=== PATIENT | male | born 1950 | race Caucasian/White ===

== ENCOUNTER → 2016-02-13 | Outpatient (CLI) | payer MEDICARE ==
[2016-02-13 10:40] LABS: BASOPHILS % (AUTO) 0 % (0-10); EOSINOPHILS # (AUTO) 0.2 10^3/uL (0.0-0.3); EOSINOPHILS % (AUTO) 1 % (0-10); LYMPHOCYTES % (AUTO) 16 % (12-44); MEAN CORPUSCULAR HEMOGLOBIN 26 PG (25-34); MEAN CORPUSCULAR HGB CONC 32 G/DL (32-36); MEAN CORPUSCULAR VOLUME 82 FL (80-99); MEAN PLATELET VOLUME 10.2 FL (7.4-10.4); MONOCYTES # (AUTO) 0.9 X 10^3 (0.0-1.0); MONOCYTES % (AUTO) 7 % (0-12); NEUTROPHILS # (AUTO) 9.4 X 10^3 (1.8-7.8); NEUTROPHILS % (AUTO) 75 % (42-75); PLATELET COUNT 313 10^3/uL (130-400); RED BLOOD COUNT 4.31 10^6/uL (4.35-5.85); WHITE BLOOD COUNT 12.5 10^3/uL (4.3-11.0)
[2016-02-13 11:00] LABS: ALANINE AMINOTRANSFERASE 20 U/L (0-55); ALBUMIN 3.5 G/DL (3.2-4.5); ANION GAP 9 MMOL/L (5-14); ASPARTATE AMINO TRANSFERASE 16 U/L (5-34); BILIRUBIN,TOTAL 0.3 MG/DL (0.1-1.0); BLOOD UREA NITROGEN 19 MG/DL (7-18); BUN/CREATININE RATIO 22; CALCIUM 9.4 MG/DL (8.5-10.1); CARBON DIOXIDE 25 MMOL/L (21-32); CHLORIDE 108 MMOL/L (98-107); CHOLESTEROL 99 MG/DL (< 200); CREATININE SERUM 0.86 MG/DL (0.60-1.30); DIRECT LDL 50 MG/DL (1-129); GFR ESTIMATED > 60; GLUCOSE 137 MG/DL (70-105); SODIUM 142 MMOL/L (135-145); TOTAL PROTEIN 6.6 G/DL (6.4-8.2); TRIGLYCERIDES 62 MG/DL (<150); VLDL CHOLESTEROL 12 MG/DL (5-40)
[2016-02-13 11:20] LABS: THYROID STIMULATING HORMONE 0.45 UIU/ML (0.35-4.94)
== END ==
LOC: HH 10:30
DX: M62.81 Muscle weakness (generalized) (principal); E11.9 Type 2 diabetes mellitus without complications; I10 Essential (primary) hypertension; Z79.4 Long term (current) use of insulin
CPT/HCPCS: 80053; 80061; 83036; 84443; 85025

== ENCOUNTER → 2016-02-14 | Outpatient (CLI) | payer MEDICARE ==
[2016-02-14 17:52] LABS: BILIRUBIN,URINE NEGATIVE (NEGATIVE); KETONES,URINE NEGATIVE (NEGATIVE); LEUKOCYTE ESTERASE ,URINE 2+ (NEGATIVE); NITRITE,URINE NEGATIVE (NEGATIVE); PH,URINE 6 (5-9); PROTEIN,URINE 1+ (NEGATIVE); UROBILINOGEN,URINE NORMAL (NORMAL)
== END ==
LOC: LABNPT 17:47
DX: N39.0 Urinary tract infection, site not specified (principal)
CPT/HCPCS: 81000; 87088; 87186

== ENCOUNTER → 2016-02-27 | Outpatient (CLI) | payer MEDICARE ==
[2016-02-27 16:27] LABS: BILIRUBIN,URINE NEGATIVE (NEGATIVE); KETONES,URINE NEGATIVE (NEGATIVE); LEUKOCYTE ESTERASE ,URINE 1+ (NEGATIVE); NITRITE,URINE NEGATIVE (NEGATIVE); PH,URINE 6 (5-9); PROTEIN,URINE 1+ (NEGATIVE); UROBILINOGEN,URINE NORMAL (NORMAL)
[2016-02-27 16:42] LABS: CALCIUM OXALATE CRYSTALS,UR FEW /LPF
== END ==
LOC: HH 16:20
DX: R82.99 Other abnormal findings in urine (principal)
CPT/HCPCS: 81000; 87077; 87088; 87186

== ENCOUNTER → 2016-03-13 | Outpatient (CLI) | payer MEDICARE ==
[2016-03-13 14:10] LABS: BILIRUBIN,URINE NEGATIVE (NEGATIVE); KETONES,URINE NEGATIVE (NEGATIVE); LEUKOCYTE ESTERASE ,URINE 2+ (NEGATIVE); NITRITE,URINE NEGATIVE (NEGATIVE); PH,URINE 6 (5-9); PROTEIN,URINE 1+ (NEGATIVE); UROBILINOGEN,URINE NORMAL (NORMAL)
[2016-03-13 14:24] LABS: CALCIUM OXALATE CRYSTALS,UR MODERATE /LPF; WBC,URINE 25-50 /HPF
== END ==
LOC: HH 12:30
DX: N39.0 Urinary tract infection, site not specified (principal)
CPT/HCPCS: 81000; 87088

== ENCOUNTER → 2016-05-04 | Outpatient (CLI) | payer MEDICARE, OTHER ==
--- NOTE | 2016-05-04 14:10 | Diagnostic Imaging Report ---
PROCEDURE: CT abdomen and pelvis without contrast. TECHNIQUE: Multiple contiguous axial images were obtained through the abdomen and pelvis without the use of intravenous contrast. INDICATION: UTIs for nine months. FINDINGS: The lung bases are clear. The liver appears normal. The gallbladder is absent. Bile ducts are not dilated. The pancreas is normal. The spleen is normal. The adrenal glands are normal. Kidneys show multiple calculi bilaterally with no evidence for renal obstruction. Largest calculus on the right in the mid calyx measures approximately 7 mm. Largest calculus on left in the pole calyx measuring 7 mm. There is a 2 cm cyst in the lateral aspect of the left kidney. Renal outlines are smooth. No perinephric fluid. The ureters are not dilated. The bladder appears normal. There are several calcifications in the pelvis consistent with phleboliths. The prostate is not enlarged. Stomach is filled with food and fluid. Small bowel is not distended. There is a moderate amount of stool throughout the colon to the rectum consistent with some degree of constipation. The appendix is visualized and normal. There is no evidence of diverticulitis. There is no intra-abdominal adenopathy. No evidence of aortic aneurysm with atherosclerotic disease of the aorta. IMPRESSION: 1. Bilateral nephrolithiasis without evidence of renal obstruction. 2. There is a 2 cm cyst in the left kidney. 3. Finding are consistent with moderate degree of constipation. There is diverticulosis without evidence of diverticulitis. Dictated by: Dictated on workstation # [id number]
== END ==
LOC: RAD 11:48
PROVIDERS: ATTEND Urology
DX: N39.0 Urinary tract infection, site not specified (principal); N20.0 Calculus of kidney; N28.1 Cyst of kidney, acquired
CPT/HCPCS: 74176

== ENCOUNTER 2016-06-01 14:39 | Outpatient (RCR) | payer MEDICARE, OTHER | END 2016-06-05 15:42 | disposition home or self-care (01) | PROVIDERS: ATTEND Nurse Practitioner Family | DX: R53.1 Weakness (principal); R20.0 Anesthesia of skin ==

== ENCOUNTER 2016-10-12 23:08 | Inpatient (IN) | payer MEDICARE, OTHER ==
[~2016-10-12] VITALS: Ht 154.9 cm; Wt 46.4 kg
[2016-10-12] MEDS ORDERED: GABA-488 PO (23:42)
[2016-10-12] MEDS ORDERED: METF500T4 PO (23:42)
[2016-10-12] MEDS ORDERED: SERT100T8 PO (23:42)
[2016-10-12] MEDS ORDERED: AMLO10TA2 PO (23:42)
[2016-10-12] MEDS ORDERED: GLIP5TAB13 PO (23:42)
[2016-10-12] MEDS ORDERED: FLUT1DIS26 (23:42)
[2016-10-12] MEDS ORDERED: BUPR100T7 PO (23:46)
[2016-10-12] MEDS ORDERED: ATOR20TA66 PO (23:46)
[2016-10-12] MEDS ORDERED: IPRA3AMP IH (23:46)
[2016-10-12] MEDS ORDERED: INSU100V16 SQ (23:46)
[2016-10-12] MEDS ORDERED: INSU100V6 SQ (23:46)
[2016-10-13] VITALS (7 sets, daily range): BP systolic 132–165; BP diastolic 79–92
[2016-10-13] MEDS ORDERED: NS IV 500 ML 500 ML IV ONE (00:10)
--- NOTE | 2016-10-13 00:10 | ED GI ---
General Chief Complaint: General Problems/Pain Stated Complaint: POSS PNEUMONIA,POSS UTI,DIABETES Nursing Triage Note: caregiver reports increased confusion since yesterday Sepsis Screen: No Definite Risk Source of Information: Patient, Caregiver (daughter in law) Exam Limitations: No Limitations History of Present Illness Time Seen By Provider: 00:08 Initial Comments Patient presents to ER by private conveyance with his [id number] who is the DPOA. He has a chief complaint of one to 2 days worsening nausea vomiting, confusion and weakness. He's had a productive cough for the past couple days. He was treated about 2-4 weeks ago with some antibiotics perhaps Keflex for a chronic UTI that he is seeing urology for. They were told that this UTI would probably never go away. He says he always has painful urination and never has gotten better. 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 He is having no chest pains or abdominal pains. He has no diarrhea or constipation but states that he is typically with loose stools. He has no acute rashes. Allergies and Home Medications Allergies Coded Allergies: erythromycin base (Verified Allergy, Unknown, 10/13/16) oxaprozin (Verified Allergy, Unknown, 10/13/16) Home Medications Amlodipine Besylate 10 Mg Tablet, 10 MG PO DAILY, (Reported) Atorvastatin Calcium 20 Mg Tablet, 20 MG PO, (Reported) Bupropion HCl 100 Mg Tablet.er, 100 MG PO, (Reported) Fluticasone/Salmeterol 1 Each Blst.w.dev, (Reported) Gabapentin 300 Mg Capsule, (Reported) Glipizide 5 Mg Tablet, (Reported) Insulin Aspart 100 Unit/1 Ml Susp, 1,000 UNIT SQ, (Reported) Insulin Glargine,Hum.rec.anlog 100 Unit/1 Ml Vial, 100 UNIT SQ, (Reported) Ipratropium/Albuterol Sulfate 3 Ml Ampul.neb, 3 ML IH Q4H PRN for SHORTNESS OF BREATH, (Reported) Metformin HCl 500 Mg Tablet, (Reported) Sertraline HCl 100 Mg Tablet, (Reported) Review of Systems Constitutional: No chills, No diaphoresis, No fever, malaise EENTM: No Blurred Vision, No Eye Pain Respiratory: Cough, Denies Shortness of Air Cardiovascular: Denies Chest Pain, Denies Lightheadedness Gastrointestinal: Denies Abdominal Pain, Denies Constipated, Denies Diarrhea, Nausea, Vomiting Genitourinary: Denies Burning, Denies Discharge Musculoskeletal: No back pain, No joint pain Skin: No pruritus, No rash Psychiatric/Neurological: Denies Headache, Denies Numbness, Denies Paresthesia Past Icevmjo-Ihlmlx-Xkqwqw Hx Patient Social History Alcohol Use: Denies Use Recreational Drug Use: No Smoking Status: Never a Smoker Recent Foreign Travel: No Contact w/Someone Who Travel: No Recent Infectious Disease Expo: No Surgeries History of Surgeries: Yes (brain tumor) Respiratory History of Respiratory Disorde: Yes Respiratory Disorders: COPD Cardiovascular History of Cardiac Disorders: Yes Cardiac Disorders: Hypertension Neurological History of Neurological Disord: Yes Neurological Disorders: Dementia Genitourinary History of Genitourinary Disor: No Gastrointestinal History of Gastrointestinal Di: No Musculoskeletal History of Musculoskeletal Dis: No Endocrine History of Endocrine Disorders: Yes Endocrine Disorders: Diabetes, Insulin dep HEENT History of HEENT Disorders: No Cancer History of Cancer: No Psychosocial History of Psychiatric Problem: Yes Behavioral Health Disorders: Depression Integumentary History of Skin or Integumenta: No Physical Exam Vital Signs VS - Last 72 Hours, by Label 10/12/16 23:39 Temp 98.5 Pulse 89 Resp 18 B/P (MAP) 178/94 Pulse Ox 95 Capillary Refill : Less Than 3 Seconds General Appearance: no apparent distress, thin HEENT: PERRL/EOMI, normal ENT inspection, pharynx normal Neck: non-tender, full range of motion, supple, normal inspection Respiratory: chest non-tender, lungs clear, normal breath sounds Cardiovascular: normal peripheral pulses, regular rate, rhythm, no edema Peripheral Pulses: 2+ Radial Pulses (R), 2+ Radial Pulses (L) Gastrointestinal: normal bowel sounds, non tender, soft Extremities: normal range of motion, non-tender, normal inspection, no pedal edema, normal capillary refill Back: normal inspection, no CVA tenderness, no vertebral tenderness Male: normal genitalia Neurologic/Psychiatric: no motor/sensory deficits, alert, normal mood/affect, oriented x 3 Skin: normal color, warm/dry Lymphatic: no adenopathy Focused Exam Evaluation Lactate Level Laboratory Tests 10/13/16 00:25: Lactic Acid Level 1.31 Lactic Acid Level Laboratory Tests Test 10/13/16 00:25 Lactic Acid Level 1.31 MMOL/L (0.50-2.00) Progress/Results/Core Measures Results/Orders Lab Results Laboratory Tests Test 10/13/16 00:25 10/13/16 00:55 Range/Units White Blood Count 12.4 H 4.3-11.0 10^3/uL Red Blood Count 4.21 L 4.35-5.85 10^6/uL Hemoglobin 12.9 L 13.3-17.7 G/DL Hematocrit 40 40-54 % Mean Corpuscular Volume 94 80-99 FL Mean Corpuscular Hemoglobin 31 25-34 PG Mean Corpuscular Hemoglobin Concent 33 32-36 G/DL Red Cell Distribution Width 13.2 10.0-14.5 % Platelet Count 194 130-400 10^3/uL Mean Platelet Volume 10.4 7.4-10.4 FL Neutrophils (%) (Auto) 78 H 42-75 % Lymphocytes (%) (Auto) 11 L 12-44 % Monocytes (%) (Auto) 9 0-12 % Eosinophils (%) (Auto) 1 0-10 % Basophils (%) (Auto) 0 0-10 % Neutrophils # (Auto) 9.7 H 1.8-7.8 X 10^3 Lymphocytes # (Auto) 1.4 1.0-4.0 X 10^3 Monocytes # (Auto) 1.1 H 0.0-1.0 X 10^3 Eosinophils # (Auto) 0.2 0.0-0.3 10^3/uL Basophils # (Auto) 0.0 0.0-0.1 10^3/uL Sodium Level 141 135-145 MMOL/L Potassium Level 4.0 3.6-5.0 MMOL/L Chloride Level 103 98-107 MMOL/L Carbon Dioxide Level 27 21-32 MMOL/L Anion Gap 11 5-14 MMOL/L Blood Urea Nitrogen 19 H 7-18 MG/DL Creatinine 0.84 0.60-1.30 MG/DL Estimat Glomerular Filtration Rate > 60 BUN/Creatinine Ratio 23 Glucose Level 147 H 70-105 MG/DL Lactic Acid Level 1.31 0.50-2.00 MMOL/L Calcium Level 9.6 8.5-10.1 MG/DL Magnesium Level 2.0 1.8-2.4 MG/DL Total Bilirubin 0.3 0.1-1.0 MG/DL Aspartate Amino Transf (AST/SGOT) 26 5-34 U/L Alanine Aminotransferase (ALT/SGPT) 38 0-55 U/L Alkaline Phosphatase 96 40-136 U/L Total Protein 6.3 L 6.4-8.2 GM/DL Albumin 3.9 3.2-4.5 GM/DL Urine Color YELLOW Urine Clarity VERY CLOUDY H Urine pH 5 5-9 Urine Specific [place] 1.020 1.016-1.022 Urine Protein 2+ H NEGATIVE Urine Glucose (UA) 2+ H NEGATIVE Urine Ketones NEGATIVE NEGATIVE Urine Nitrite NEGATIVE NEGATIVE Urine Bilirubin NEGATIVE NEGATIVE Urine Urobilinogen NORMAL NORMAL MG/DL Urine Leukocyte Esterase 3+ H NEGATIVE Urine RBC (Auto) 4+ H NEGATIVE Urine RBC 0-2 /HPF Urine WBC >100 H /HPF Urine Squamous Epithelial Cells NONE /HPF Urine Crystals PRESENT H /LPF Urine Calcium Oxalate Crystals RARE H /LPF Urine Bacteria MODERATE H /HPF Urine Casts NONE /LPF Urine Mucus NEGATIVE /LPF Urine Culture Indicated YES My Orders Orders - GAYE FERREIRA Cbc With Automated Diff (10/13/16 00:10) Comprehensive Metabolic Panel (10/13/16 00:10) Lactic Acid Analyzer (10/13/16 00:10) Magnesium (10/13/16 00:10) Ua Culture If Indicated (10/13/16 00:10) Chest 1 View, Ap/Pa Only (10/13/16 00:10) Saline Lock/Iv-Start (10/13/16 00:10) Ns Iv 500 Ml (Sodium Chloride 0.9%) (10/13/16 00:10) Urine Culture (10/13/16 00:55) Medications Given in ED Current Medications Medications Dose Ordered Sig/Shakira Route Start Time Stop Time Status Last Admin Dose Admin Sodium Chloride 500 ml @ 0 mls/hr Q0M ONCE IV 10/13/16 00:10 10/13/16 00:12 DC 10/13/16 00:38 0 MLS/HR Vital Signs/I&O Vital Sign - Last 12Hours 10/12/16 23:39 Temp 98.5 Pulse 89 Resp 18 B/P (MAP) 178/94 Pulse Ox 95 Blood Pressure Mean: 122 Progress Note : Time: 01:17 Progress Note Patient seems to be having some confusion possibly delirium secondary to infection, with nausea and vomiting. He has a known history of cystitis. Despite the possibility of having a colonized bladder he states he's having painful urination and new symptoms. We'll obtain blood and urine and a chest x- ray to go along with his loose productive cough which this provider has not heard tonight. Lungs were clear and chest x-ray was unremarkable so I'm leaning more towards urinary tract. Lactates normal so at least he is not getting septic. Diagnostic Imaging Diagonstic Imaging: Xray Plain Films/CT/US/NM/MRI: chest Comments No acute heart cardiopulmonary processes noted. No acute osseous or soft tissue abnormality is either. Reviewed: Reviewed by Me Departure Communication (Admissions) Time/Spoke to Admitting Phy: 01:43 Communication Discussed the case with Dr. Potter as well as choice of antibiotics and plan for admission and possible need for some placement afterwards. Impression Impression: Primary Impression: Urinary tract infection Qualified Codes: N30.01 - Acute cystitis with hematuria Additional Impression: Delirium Disposition: ADMITTED INPATIENT Condition: Stable Admissions Decision to Admit Reason: Admit from ER (General) Decision to Admit/Date: Oct 13, 2016 Time/Decision to Admit Time: 01:48 Departure-Patient Inst. Referrals: NO,LOCAL PHYSICIAN (PCP/Family) Primary Care Physician GAYE FERREIRA Oct 13, 2016 00:10
[2016-10-13 00:39] LABS: BASOPHILS % (AUTO) 0 % (0-10); EOSINOPHILS # (AUTO) 0.2 10^3/uL (0.0-0.3); EOSINOPHILS % (AUTO) 1 % (0-10); LYMPHOCYTES # (AUTO) 1.4 X 10^3 (1.0-4.0); LYMPHOCYTES % (AUTO) 11 % (12-44); MEAN CORPUSCULAR HEMOGLOBIN 31 PG (25-34); MEAN CORPUSCULAR HGB CONC 33 G/DL (32-36); MEAN CORPUSCULAR VOLUME 94 FL (80-99); MEAN PLATELET VOLUME 10.4 FL (7.4-10.4); MONOCYTES # (AUTO) 1.1 X 10^3 (0.0-1.0); MONOCYTES % (AUTO) 9 % (0-12); NEUTROPHILS # (AUTO) 9.7 X 10^3 (1.8-7.8); NEUTROPHILS % (AUTO) 78 % (42-75); PLATELET COUNT 194 10^3/uL (130-400); RED BLOOD COUNT 4.21 10^6/uL (4.35-5.85); RED CELL DISTRIBUTION WIDTH 13.2 % (10.0-14.5); WHITE BLOOD COUNT 12.4 10^3/uL (4.3-11.0)
[2016-10-13 00:59] LABS: ALANINE AMINOTRANSFERASE 38 U/L (0-55); ALBUMIN 3.9 GM/DL (3.2-4.5); ANION GAP 11 MMOL/L (5-14); ASPARTATE AMINO TRANSFERASE 26 U/L (5-34); BILIRUBIN,TOTAL 0.3 MG/DL (0.1-1.0); BLOOD UREA NITROGEN 19 MG/DL (7-18); BUN/CREATININE RATIO 23; CALCIUM 9.6 MG/DL (8.5-10.1); CARBON DIOXIDE 27 MMOL/L (21-32); CHLORIDE 103 MMOL/L (98-107); CREATININE SERUM 0.84 MG/DL (0.60-1.30); GFR ESTIMATED > 60; GLUCOSE 147 MG/DL (70-105); SODIUM 141 MMOL/L (135-145); TOTAL PROTEIN 6.3 GM/DL (6.4-8.2)
[2016-10-13 01:05] LABS: BILIRUBIN,URINE NEGATIVE (NEGATIVE); KETONES,URINE NEGATIVE (NEGATIVE); LEUKOCYTE ESTERASE ,URINE 3+ (NEGATIVE); NITRITE,URINE NEGATIVE (NEGATIVE); PH,URINE 5 (5-9); PROTEIN,URINE 2+ (NEGATIVE); UROBILINOGEN,URINE NORMAL (NORMAL)
[2016-10-13 01:15] LABS: CALCIUM OXALATE CRYSTALS,UR RARE /LPF; WBC,URINE >100 /HPF
[2016-10-13] MEDS ORDERED: NS IV 1000 ML 1,000 ML ONE (02:36)
[2016-10-13] MEDS ORDERED: HALOPERIDOL 5 MG/ML (HALDOL) AMP IM PRN (03:15)
[2016-10-13] MEDS ORDERED: ACETAMINOPHEN 500 MG TAB (TYLENOL) PO PRN (03:15)
[2016-10-13] MEDS ORDERED: IBUPROFEN 800 MG (MOTRIN) TAB PO PRN (03:15)
[2016-10-13] MEDS ORDERED: fentaNYL INJECTION 100 MCG/2 ML AMP IV PRN (03:15)
[2016-10-13] MEDS ORDERED: ONDANSETRON 4 MG/2 ML (SDV) Z0FRAN IV PRN (03:15)
[2016-10-13] MEDS: NS IV 1000 ML 1,000 ML IV SCH ×3 (04:07→17:01)
[2016-10-13] MEDS: inSUlin ASPART (NovoLOG) 1 UNIT/0.01 ML (CHARGE PER UNIT) SC SCH ×4 (06:25→21:10)
--- NOTE | 2016-10-13 07:12 | Diagnostic Imaging Report ---
Clinical indication: Patient with complaints of increased confusion. Exam: Portable chest x-ray upright view. Comparisons: None. Findings: Lungs/pleura: Lungs are clear. There is no pneumothorax. There is no pleural effusion. Mediastinum: Unremarkable. Pulmonary vasculature: Unremarkable. Heart: Unremarkable. Bones/extrathoracic soft tissue: Unremarkable. Impression: There is no radiographic evidence of acute cardiopulmonary process. Dictated by: Dictated on workstation # [id number]
[2016-10-13] MEDS ORDERED: AMLO10TA2 PO (11:36)
[2016-10-13] MEDS ORDERED: CHOL200059 PO (11:45)
--- NOTE | 2016-10-13 12:23 | Physical Therapy Evaluation ---
PT Evaluation-General Medical Diagnosis Admission Date Oct 13, 2016 at 01:45 Medical Diagnosis: ABD pain Onset Date: Oct 12, 2016 Therapy Diagnosis Therapy Diagnosis: weakness Height/Weight Height (Feet): 5 Height (Inches): 1.00 Weight (Pounds): 102 Weight (Ounces): 4.2 Precautions Precautions/Isolations: Fall Prevention, Standard Precautions Weight Bear Status Weight Bearing Restriction: Weight Bearing/Tolerated Referral Physician: Tariq Reason for Referral: Evaluation/Treatment Social History Home: Single Level Current Living Status: Other Family Prior/[facility] FIM Prior Level of Function Functional [place] Measure 0=Not Assessed/NA 4=Minimal Assistance 1=Total Assistance 5=Supervision or Setup 2=Maximal Assistance 6=Modified [place] 3=Moderate Assistance 7=Complete [place] Bed Mobility: 5 Transfers (B,C,W/C) (FIM): 5 Gait: 5 Locomotion: 5 PT Evaluation-Current Subjective States that he fell while transferring at home last night. States that his family brought him to the ED last night after the fall. Pain Numeric Pain Scale: 0-No Pain Objective Patient Orientation: Person, Place Attachments: IV ROM/Strength ROM Upper Extremities WFL ROM Lower Extremities WFL Strenght Lower Extremities 4/5 Integumentary/Posture Bowel Incontinence: Yes Bladder Incontinence: Yes Posture kyphotic Transfers Functional [place] Measure 0=Not Assessed/NA 4=Minimal Assistance 1=Total Assistance 5=Supervision or Setup 2=Maximal Assistance 6=Modified [place] 3=Moderate Assistance 7=Complete [place] Transfers (B, C, W/C) (FIM): 3 Scootin Rollin Supine to/from Sit: 4 Sit to/from Stand: 3 Gait Mode of Locomotion: Walk Anticipated Mode of Locomotion: Walk Gait (FIM): 1 Distance (FIM): 1=up to 49 ft Distance: 2' Gait Level of Assist: 3 Gait Persons Needed: 1 Gait Assistive Device: FWW Balance Sitting Static: Fair Sitting Dynamic: Fair Standing Static: Poor Standing Dynamic: Poor Assessment/Needs The patient has decreased functional mobility secondary to decreased functional strength and decreased functional activity tolerance. Rehab Potential: Fair PT Short Term Goals Short Term Goals Time Frame: Oct 20, 2016 Transfers (B,C,W/C) (FIM): 5 Gait (FIM): 1 Distance (FIM): 1=up to 49 ft Gait Distance Comment: 20' Gait Level of Assist: 5 Gait Assistive Device: FWW PT Half-Way Goals [employer] Supervisor Goals PT Half-Way Goals Time Frame: Oct 27, 2016 Transfers (B,C,W/C) (FIM): 5 Gait (FIM): 5 Gait distance (FIM): 3=150 ft Distance: 150' Gait Level of Assist: 5 Gait Assistive Device: FWW PT Plan Problem List Problem List: Activity Tolerance, Functional Strength, Safety, Balance, Gait, Transfer, Bed Mobility Treatment/Plan Treatment Plan: Continue Plan of Care Treatment Plan: Bed Mobility, Education, Functional Activity Jesus, Functional Strength, Gait, Therapeutic Exercise, Transfers Treatment Duration: Oct 27, 2016 Frequency: Daily Estimated Hrs Per Day: .25 hour per day Patient and/or Family Agrees t: Yes Time/GCodes Time In: 1200 Time Out: 1220 Total Billed Treatment Time: 20 Total Billed Treatment 1, EV CORNELIO Scott G Codes Necessary: PONCHO Conley PT Oct 13, 2016 12:23
--- NOTE | 2016-10-13 13:35 | Occupational Therapy Eval ---
OT Evaluation-General/PLF Medical Diagnosis Admission Date Oct 13, 2016 at 01:45 Medical Diagnosis: UTI, delerium Onset Date: Oct 12, 2016 Therapy Diagnosis Therapy Diagnosis: decr self care, weakness Height/Weight Height (Feet): 5 Height (Inches): 1.00 Weight (Pounds): 102 Weight (Ounces): 4.2 Precautions Precautions/Isolations: Fall Prevention, Standard Precautions Weight Bear Status Weight Bearing Restriction: Weight Bearing/Tolerated Referral Physician: Tariq Referral Reason: Evaluation/Treatment Medical History Pertinent Medical History: COPD, DM, Dementia, HTN Additional Medical History Depression. Brain tumor removed 2 years ago, with inability to walk Current History Admitted through ED when family unable to transfer him. Reviewed History: Yes Social History Home: Single Level Current Living Status: Other Family ADL-Prior Level of Function ADL PLOF Comments Pt was poor historian and difficulty to get clear picture of his prior functional status. He said that he was able to dress in bed by himself. He was incontinent of bowel and bladder and didn't transfer to toilet at all but he was able to transfer from bed to w/c with someone standing by. He said he does not bathe and hasn't had a bathe since July but that his caregiver had talked to him and he was going to start doing sponge baths. He indicated that he has a paid caregiver (Li, his stepdaughter?) "as much as I need her". OT Current Status Subjective Pt seen in room, up in recliner, agreeable to OT. No pain mentioned. Appearance Pleasant, cooperative Mental Status/Objective Patient Orientation: Person () Attachments: IV Current Upper Extremity ROM Grossly WFL bilat Upper Extremity Strength Grossly 4/5 bilat ADL-Treatment ADL-Current Pt refused to brush his teeth. Said he has been feeding himself OK but not transferring to toilet or using urinal (incontinent bowel and bladder). Functional [place] Measure 0=Not Assessed/NA 4=Minimal Assistance 1=Total Assistance 5=Supervision or Setup 2=Maximal Assistance 6=Modified [place] 3=Moderate Assistance 7=Complete IndependenceIRFPAI Quality Coding Scale 6 Independent with activity with or without an assistive device 5 Patient requires set up or clean up by helper. Patient completes activity by themselves 4 Supervision or touching assist (CGA). [place] provide cues , steadying assist 3 The helper provides less than half the effort to complete the activity 2 The helper provides more than half the effort to complete the activity 1 Dependent. The helper does all the effort to complete an activity 7 Patient refused to complete or attempt activity 9 The patient did not perform the activity before the current illness or injury 88 Not attempted due to Medical conditions or safety concerns Education OT Patient Education: Purpose of tx/functional activities, Rehab process Teaching Recipient: Patient Teaching Methods: Discussion Response to Teaching: Verbalize Understanding OT Short Term Goals Short Term Goals Transfers (B,C,W/C) (FIM): 5 OT Fruit [employer] Worker Goals Group Home Goals Time Frame: Oct 19, 2016 Eating (FIM): 6 Grooming(FIM): 5 Upper Body Dressing(FIM): 5 Lower Body Dressing(FIM): 5 Pt will maximize independence in basic ADLs and strengthen arms to assist with transfers and ADLs. Additional Goals: 2-Verbalize Understanding, 3-ImproveStrength/Jesus 1=Demonstrate adherence to instructed precautions during ADL tasks. 2=Patient will verbalize/demonstrate understanding of assistive devices/ modifications for ADL. 3=Patient will improve strength/tolerance for activity to enable patient to perform ADL's. OT Education/Plan Problem List/Assessment Assessment: Decreased UE Strength, Dependent Transfers, Impaired Self-Care Skills Pt may benefit from skilled Ot to increase his independence in basic self care to allow him to safely return home to live with caregiver assistance. Discharge Recommendations Plan/Recommendations: Continue POC Therapy D/C Recommendations: Home w/ Family Support Treatment Plan/Plan of Care Treatment,Training & Education: Yes Patient would benefit from OT for education, treatment and training to promote independence in ADL's, mobility, safety and/or upper extremity function for ADL' s. Plan of Care: ADL Retraining, UE Funct Exercise/Act Treatment Duration: Oct 19, 2016 Frequency: 5 times per week Estimated Hrs Per Day: .5 hour per day Agreement: Yes Rehab Potential: Fair Time/GCodes Start Time: 12:53 Stop Time: 13:07 Total Time Billed (hr/min): 14 Billed Treatment Time visit, 14 minutes evaluation low intensity LORENZO RICCI OT Oct 13, 2016 13:35
[2016-10-13] MEDS: buPROPion SR 150 MG (WELLBUTRIN SR) TAB PO SCH (13:57)
[2016-10-13] MEDS: SERTRALINE 100 MG (ZOLOFT) TAB PO SCH (13:58)
[2016-10-13] MEDS: ATORVASTATIN 20 MG (LIPITOR) TABLET PO SCH (13:58)
[2016-10-13] MEDS: amLODIPine 5 MG (NORVASC) TAB PO SCH (13:58)
[2016-10-13] MEDS: inSUlin DETERMIR 1 UNIT/0.01 ML (LEVEMIR) CHARGE PER UNIT SQ SCH (21:18)
[2016-10-14 00:26] VITALS: BP 158/86
[2016-10-14 04:40] VITALS: BP 167/89
[2016-10-14 05:31] LABS: BASOPHILS % (AUTO) 0 % (0-10); EOSINOPHILS # (AUTO) 0.1 10^3/uL (0.0-0.3); EOSINOPHILS % (AUTO) 1 % (0-10); LYMPHOCYTES # (AUTO) 1.6 X 10^3 (1.0-4.0); LYMPHOCYTES % (AUTO) 18 % (12-44); MEAN CORPUSCULAR HEMOGLOBIN 30 PG (25-34); MEAN CORPUSCULAR HGB CONC 33 G/DL (32-36); MEAN CORPUSCULAR VOLUME 93 FL (80-99); MEAN PLATELET VOLUME 10.4 FL (7.4-10.4); MONOCYTES # (AUTO) 0.8 X 10^3 (0.0-1.0); MONOCYTES % (AUTO) 9 % (0-12); NEUTROPHILS # (AUTO) 6.4 X 10^3 (1.8-7.8); NEUTROPHILS % (AUTO) 72 % (42-75); PLATELET COUNT 195 10^3/uL (130-400); RED BLOOD COUNT 4.21 10^6/uL (4.35-5.85); RED CELL DISTRIBUTION WIDTH 13.3 % (10.0-14.5); WHITE BLOOD COUNT 8.8 10^3/uL (4.3-11.0)
[2016-10-14 05:52] LABS: ANION GAP 12 MMOL/L (5-14); BLOOD UREA NITROGEN 14 MG/DL (7-18); BUN/CREATININE RATIO 18; CALCIUM 9.8 MG/DL (8.5-10.1); CARBON DIOXIDE 22 MMOL/L (21-32); CHLORIDE 108 MMOL/L (98-107); CREATININE SERUM 0.79 MG/DL (0.60-1.30); GFR ESTIMATED > 60; GLUCOSE 176 MG/DL (70-105); POTASSIUM 3.5 MMOL/L (3.6-5.0); SODIUM 142 MMOL/L (135-145)
[2016-10-14] MEDS: inSUlin ASPART (NovoLOG) 1 UNIT/0.01 ML (CHARGE PER UNIT) SC SCH ×4 (06:25→21:06)
[2016-10-14 08:29] VITALS: BP 186/97
[2016-10-14] MEDS: buPROPion SR 150 MG (WELLBUTRIN SR) TAB PO SCH (08:57)
[2016-10-14] MEDS: ATORVASTATIN 20 MG (LIPITOR) TABLET PO SCH (08:58)
[2016-10-14] MEDS: amLODIPine 5 MG (NORVASC) TAB PO SCH (08:58)
[2016-10-14] MEDS: SERTRALINE 100 MG (ZOLOFT) TAB PO SCH (08:58)
[2016-10-14] MEDS ORDERED: buPROPion SR 150 MG (WELLBUTRIN SR) TAB PO SCH (09:00)
[2016-10-14] MEDS ORDERED: SERTRALINE 100 MG (ZOLOFT) TAB PO SCH (09:00)
[2016-10-14] MEDS ORDERED: ATORVASTATIN 20 MG (LIPITOR) TABLET PO SCH (09:00)
[2016-10-14] MEDS ORDERED: amLODIPine 5 MG (NORVASC) TAB PO SCH (09:00)
[2016-10-14] MEDS ORDERED: KCL 20 MEQ TAB (K-DUR) PO NR (11:30)
--- NOTE | 2016-10-14 12:00 | History & Physical-Hospitalist ---
HPI History of Present Illness: HPI/Chief Complaint CC: UTI with weakness HPI: This patient was seen yesterday on 10/13/16 and inadvertently missed the history and physical dictation. Patient presented to the emergency room with fever and weakness and has a history of chronic UTI. Patient was found to have abnormal UA so is placed on Rocephin empirically and due to the fact that he was almost immobile he was admitted to fourth floor for IV fluid IV antibiotics and further evaluation. His pbbetqjd-kb-wdn is a pikq-xz-xhxz mother who takes care of him since brain surgery and after moving him out of a retirement in [place] and has actually done pretty well at home. He has a wheelchair and walker and all supportive devices that he needs at home and he will be returning home at discharge. Patient takes insulin and otherwise does well and sees the [facility] Lencho Gross and has no local private practice physician. Today I saw the patient and see lactobacillus on urine culture I did confer with urology and we will await for sensitivities to return on the urine culture before discontinue the Rocephin antibiotics but lactobacillus is usually in female vaginal area so unsure of why that is in his urine culture. Nebulizer treatments are now ordered and home medication are all given without difficulty and his plan is to return home on Saturday with [id number]. He declines any retirement placement or home health. Source: patient Exam Limitations: no limitations Date Seen 10/14/16 Time Seen by Provider: 11:00 Attending Physician Nikki Potter DO PCP No,Local Physician Referring Physician Date of Admission Oct 13, 2016 at 01:45 Home Medications & Allergies Home Medications Reviewed patient Home Medication Reconciliation Form Allergies Allergies Coded Allergies erythromycin base (Verified Allergy, Unknown, 10/13/16) oxaprozin (Verified Allergy, Unknown, 10/13/16) Past Amclsln-Exfymp-Kzabre Hx Patient Social History Marrital Status: single Employed/Student: retired ([employer] 21 years) Alcohol Use: Denies Use Recreational Drug Use: No Smoking Status: Never a Smoker Physical Abuse Screen: No Sexual Abuse: No Recent Foreign Travel: No Contact w/other who traveled: No Recent Infectious Disease Expo: No Seasonal Allergies Seasonal Allergies: No Surgeries Yes (brain tumor) Respiratory Yes COPD Cardiovascular Yes Hypertension Neurological Yes Dementia Genitourinary Yes Kidney Stones, UTI-Chronic Gastrointestinal Yes Chronic Constipation Musculoskeletal Yes Arthritis Endocrine History of Endocrine Disorders: Yes Endocrine Disorders: Diabetes, Insulin dep Are Your Blood Sugars Over 250: No HEENT History of HEENT Disorders: No Cancer No Psychosocial History of Psychiatric Problem: Yes Behavioral Health Disorders: Depression Integumentary History of Skin or Integumenta: No Blood Transfusions History of Blood Disorders: No Family Medical History Family Hx: Patient reports no known family medical history. Review of Systems Constitutional: see HPI, weakness EENTM: no symptoms reported Respiratory: no symptoms reported Cardiovascular: no symptoms reported Gastrointestinal: no symptoms reported Genitourinary: decreased output, frequency Musculoskeletal: no symptoms reported Skin: no symptoms reported Psychiatric/Neurological: No Symptoms Reported All Other Systems Reviewed Negative Unless Noted: Yes Physical Exam Physical Exam Vital Signs Vital Sign - Last 12Hours 10/12/16 10/13/16 10/13/16 23:39 02:30 12:00 Temp 98.5 Pulse 89 Resp 18 B/P (MAP) 178/94 Pulse Ox 95 O2 Delivery Room Air O2 Flow Rate 2.00 Capillary Refill : Less Than 3 Seconds General Appearance: No Apparent Distress, WD/WN, Chronically ill, Cachetic Eyes: Bilateral Eye Normal Inspection, Bilateral Eye PERRL HEENT: PERRL/EOMI, Normal ENT Inspection, Pharynx Normal Neck: Full Range of Motion, Normal Inspection, Non Tender, Supple, Carotid Bruit Respiratory: Chest Non Tender, Lungs Clear, Normal Breath Sounds, No Accessory Muscle Use, No Respiratory Distress Cardiovascular: Regular Rate, Rhythm, No Edema, No Gallop, No JVD, No Murmur, Normal Peripheral Pulses Gastrointestinal: Normal Bowel Sounds, No Organomegaly, No Pulsatile Mass, Non Tender, Soft Back: Normal Inspection, No CVA Tenderness, No Vertebral Tenderness Extremity: Normal Capillary Refill, Normal Inspection, Normal Range of Motion ( except paralysis of legs with severe muscle wasting), Non Tender, No Calf Tenderness, No Pedal Edema Neurologic/Psychiatric: Alert, Oriented x3, No Motor/Sensory Deficits, Normal Mood/Affect Skin: Normal Color, Warm/Dry Lymphatic: No Adenopathy Results Results/Procedures Lab Laboratory Tests 10/13/16 00:25 10/14/16 05:20 Assessment/Plan Admission Diagnosis Assessment: Acute on chronic UTI placed on Rocephin empirically History of brain tumor surgery a year and half ago and resided in a retirement but has been living with egxziyft-hv-nev for the past 9 months 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
[2016-10-14 12:30] VITALS: BP 186/97
[2016-10-14] MEDS ORDERED: RT-ALBUTEROL/IPRATROPIUM 3 ML (DUONEB) VIAL INH PRN (12:45)
[2016-10-14 16:03] VITALS: BP 193/93
[2016-10-14] MEDS: inSUlin DETERMIR 1 UNIT/0.01 ML (LEVEMIR) CHARGE PER UNIT SQ SCH (21:06)
[2016-10-14] MEDS: NS IV 1000 ML 1,000 ML IV SCH (22:24)
[2016-10-14 23:40] VITALS: BP 186/95
[2016-10-15] MEDS: amLODIPine 5 MG (NORVASC) TAB PO SCH ×2 (01:52→09:22)
[2016-10-15] MEDS: inSUlin ASPART (NovoLOG) 1 UNIT/0.01 ML (CHARGE PER UNIT) SC SCH ×4 (05:24→20:41)
[2016-10-15 08:00] VITALS: BP 176/85
[2016-10-15] MEDS: SERTRALINE 100 MG (ZOLOFT) TAB PO SCH (09:22)
[2016-10-15] MEDS: ATORVASTATIN 20 MG (LIPITOR) TABLET PO SCH (09:22)
[2016-10-15] MEDS: buPROPion SR 150 MG (WELLBUTRIN SR) TAB PO SCH (09:22)
--- NOTE | 2016-10-15 10:39 | Physical Therapy Progress Note ---
Therapy Progress Note Patient refused treatment this morning. Patient had been having BP high of 176/ 85. Asked nurse to take it again and it was 155/80's. Attempted to work with patient but he refused. Will try back later. CINDY KELLEY PT Oct 15, 2016 10:39
[2016-10-15] MEDS: NS IV 1000 ML 1,000 ML IV SCH (11:34)
--- NOTE | 2016-10-15 12:11 | Progress Note-Hospitalist ---
Subjective HPI/CC On Admission Date Seen by Provider: Oct 15, 2016 Time Seen by Provider: 11:00 CC: UTI with weakness HPI: This patient was seen yesterday on 10/13/16 and inadvertently missed the history and physical dictation. Patient presented to the emergency room with fever and weakness and has a history of chronic UTI. Patient was found to have abnormal UA so is placed on Rocephin empirically and due to the fact that he was almost immobile he was admitted to fourth floor for IV fluid IV antibiotics and further evaluation. His vhxmqmtf-kg-gtg is a rhve-au-bixv mother who takes care of him since brain surgery and after moving him out of a [facility] in [place] and has actually done pretty well at home. He has a wheelchair and walker and all supportive devices that he needs at home and he will be returning home at discharge. Patient takes insulin and otherwise does well and sees the [place] [facility] [place] and has no local private practice physician. Today I saw the patient and see lactobacillus on urine culture I did confer with urology and we will await for sensitivities to return on the urine culture before discontinue the Rocephin antibiotics but lactobacillus is usually in female vaginal area so unsure of why that is in his urine culture. Nebulizer treatments are now ordered and home medication are all given without difficulty and his plan is to return home on Saturday with [id number]. He declines any chcf placement or home health. Subjective/Events-last exam Pt reports feeling about the same today though seems confused as to why he is here. He states "it's just another heart attack." He denies any complaints. He states he is eating and drinking well along with urinating. He denies any diarrhea. Objective Exam Vital Signs Vital Sign - Last 12Hours 10/12/16 10/13/16 10/13/16 23:39 02:30 12:00 Temp 98.5 Pulse 89 Resp 18 B/P (MAP) 178/94 Pulse Ox 95 O2 Delivery Room Air O2 Flow Rate 2.00 Capillary Refill : Less Than 3 Seconds General Appearance: WD/WN Eyes: Bilateral Eye Normal Inspection Neck: Normal Inspection, Supple, No JVD Respiratory: Chest Non Tender, Lungs Clear, Normal Breath Sounds Cardiovascular: Regular Rate, Rhythm, No Edema, No JVD, No Murmur, Normal Peripheral Pulses Gastrointestinal: Normal Bowel Sounds, No Organomegaly, No Pulsatile Mass, Non Tender, Soft Extremity: Normal Capillary Refill, Non Tender, No Calf Tenderness, No Pedal Edema Neurologic/Psychiatric: Alert, Other (seems confused, oriented to self and place only, normal speech) Skin: Normal Color, Warm/Dry Assessment/Plan Assessment and Plan Assess & Plan/Chief Complaint Assessment: Acute on chronic UTI - day #3 of Rocephin - Await culture, lactobacillus noted but sensitivities pending per Dr. Salas's recommendations History of brain tumor surgery a year and half ago living with iiwmspyf-if-hwc for the past 9 months Incomplete paralysis of lower legs due to brain tumor surgery Chronic debility - PT/OT - Primary hydroelectric machinery mechanic is daughter in law Insulin Dependent Diabetes mellitus -Levemir 10 units QHS -SSI -Fingerstick BS AC and QHS HTN - Continue Amlodipine FEN/GI PPX: - Reg diet - Lovenox - Saline Lock BRENDA RAMOS MD Oct 15, 2016 12:11
--- NOTE | 2016-10-15 13:27 | Physical Therapy Daily Note ---
PT Daily Note-Current Subjective Patient in bed pre tx, agrees to PT, has no complaints of pain. Agrees to get up in a chair. Appearance Patient in recliner post tx with nurse call, phone, tray, chair alarm on. Mental Status Patient Orientation: Person, Place, Situation Attachments: IV Transfers Functional [place] Measure 0=Not Assessed/NA 4=Minimal Assistance 1=Total Assistance 5=Supervision or Setup 2=Maximal Assistance 6=Modified [place] 3=Moderate Assistance 7=Complete IndependenceIRFPAI Quality Coding Scale 6 Independent with activity with or without an assistive device 5 Patient requires set up or clean up by helper. Patient completes activity by themselves 4 Supervision or touching assist (CGA). [place] provide cues , steadying assist 3 The helper provides less than half the effort to complete the activity 2 The helper provides more than half the effort to complete the activity 1 Dependent. The helper does all the effort to complete an activity 7 Patient refused to complete or attempt activity 9 The patient did not perform the activity before the current illness or injury 88 Not attempted due to Medical conditions or safety concerns Transfers (B, C, W/C) (FIM): 2 Scootin Rollin Supine to/from Sit: 2 Sit to/from Stand: 2 Bed to/from Chair: 2 max assist of 2 for bed mobility and transfers, patient performed a stand pivot transfer from the bed to chair with max assist Exercises Seated Therapy Exercises: Long arc quads, Hip flexion Seated Reps: 10 Treatments bed mobility and transfers, functional strengthening Assessment Current Status: Poor Progress no change in mobility PT Short Term Goals Short Term Goals Time Frame: Oct 20, 2016 Transfers (B,C,W/C) (FIM): 5 Gait (FIM): 1 Distance (FIM): 1=up to 49 ft Gait Distance Comment: 20' Gait Level of Assist: 5 Gait Assistive Device: FWW PT Line Welder Goals Line Welder Goals PT Mcfp Goals Time Frame: Oct 27, 2016 Transfers (B,C,W/C) (FIM): 5 Gait (FIM): 5 Gait distance (FIM): 3=150 ft Distance: 150' Gait Level of Assist: 5 Gait Assistive Device: FWW PT Plan Problem List Problem List: Activity Tolerance, Functional Strength, Safety, Balance, Gait, Transfer, Bed Mobility, ROM Treatment/Plan Treatment Plan: Continue Plan of Care Treatment Plan: Bed Mobility, Education, Functional Activity Jesus, Functional Strength, Gait, Therapeutic Exercise, Transfers Treatment Duration: Oct 27, 2016 Frequency: Daily Estimated Hrs Per Day: .25 hour per day Patient and/or Family Agrees t: Yes Safety Risks/Education Patient Education: Transfer Techniques, Correct Positioning, Safety Issues Teaching Recipient: Patient Teaching Methods: Demonstration, Discussion Response to Teaching: Reinforcement Needed Time/GCodes Time In: 1310 Time Out: 1325 Total Billed Treatment Time: 15 Total Billed Treatment 1 visit FA CINDY GALLAGHER PT Oct 15, 2016 13:27
--- NOTE | 2016-10-15 15:56 | Occupational Ther Daily Note ---
OT Current Status-Daily Note Subjective No pain reported. Appearance Pt. in chair. Agrees to work with OT. Mental Status/Objective Patient Orientation: Person, Place, Time, Situation Functional [place] Measure 0=Not Assessed/NA 4=Minimal Assistance 1=Total Assistance 5=Supervision or Setup 2=Maximal Assistance 6=Modified [place] 3=Moderate Assistance 7=Complete [place] ADL-Treatment Bathing (FIM): 3 (Pt. required assistance to wash rear and front annabel areas and feet. Pt. somewhat incontinent of stool, but was unaware that he was.) Lower Body Dressing (FIM): 4 (Pt. able to doff/don socks, but required assistance with adult depend.) Toileting (FIM): 1 (Pt. incontinent of urine and bowel in depend and did not know it.) Transfers (B, C, W/C) (FIM): 3 (Mod assist to transfer from chair to bed. In stance, pt. unstable on feet.) Pt. completed spongebath up in chair. Unstable on feet. Transferred to bed after bathing up in chair. Able to get feet into bed, but then had difficulty getting hips scooted over. All needs met in room. Bed alarm on. Nurse tech aware that pt. back in bed. All needs met. Education OT Patient Education: Correct positioning, Modified ADL techniques, Progress toward Goal/Update tx plan, Purpose of tx/functional activities, Reviewed precautions, Rehab process, Transfer techniques Teaching Recipient: Patient Teaching Methods: Demonstration, Discussion Response to Teaching: Verbalize Understanding, Return Demonstration OT Short Term Goals Short Term Goals Transfers (B,C,W/C) (FIM): 5 1=Demonstrate adherence to instructed precautions during ADL tasks. 2=Patient will verbalize/demonstrate understanding of assistive devices/ modifications for ADL. 3=Patient will improve strength/tolerance for activity to enable patient to perform ADL's. OT Senior Care Goals Shareholder Goals Time Frame: Oct 19, 2016 Eating (FIM): 6 Grooming(FIM): 5 Upper Body Dressing(FIM): 5 Lower Body Dressing(FIM): 5 Pt will maximize independence in basic ADLs and strengthen arms to assist with transfers and ADLs. Additional Goals: 2-Verbalize Understanding, 3-ImproveStrength/Jesus 1=Demonstrate adherence to instructed precautions during ADL tasks. 2=Patient will verbalize/demonstrate understanding of assistive devices/ modifications for ADL. 3=Patient will improve strength/tolerance for activity to enable patient to perform ADL's. OT Education/Plan Problem List/Assessment Assessment: Decreased Activ Tolerance, Decreased UE Strength, Dependent Transfers, Impaired Bed Mobility, Impaired Cognition, Impaired I ADL's, Impaired Self-Care Skills, Restricted Funct UE ROM Pt may benefit from skilled Ot to increase his independence in basic self care to allow him to safely return home to live with caregiver assistance. Discharge Recommendations Plan/Recommendations: Continue POC Therapy D/C Recommendations: 24 hr Supervision Treatment Plan/Plan of Care Treatment,Training & Education: Yes Patient would benefit from OT for education, treatment and training to promote independence in ADL's, mobility, safety and/or upper extremity function for ADL' s. Plan of Care: ADL Retraining, UE Funct Exercise/Act Treatment Duration: Oct 19, 2016 Frequency: 5 times per week Estimated Hrs Per Day: .5 hour per day Agreement: Yes Rehab Potential: Fair Time/GCodes Start Time: 14:45 Stop Time: 15:00 Total Time Billed (hr/min): 15 Billed Treatment Time 1, ADL SHEREE SPRINGER OT Oct 15, 2016 15:56
[2016-10-15 16:00] VITALS: BP 182/88
[2016-10-15] MEDS: ENOXAPARIN 40 MG/0.4 ML (LOVENOX) SYR SC SCH (17:26)
[2016-10-15] MEDS: inSUlin DETERMIR 1 UNIT/0.01 ML (LEVEMIR) CHARGE PER UNIT SQ SCH (20:41)
[2016-10-16] VITALS: BP 178/93
[2016-10-16] MEDS: inSUlin ASPART (NovoLOG) 1 UNIT/0.01 ML (CHARGE PER UNIT) SC SCH ×4 (05:40→20:54)
[2016-10-16 08:00] VITALS: BP 188/88
[2016-10-16] MEDS: ATORVASTATIN 20 MG (LIPITOR) TABLET PO SCH (08:58)
[2016-10-16] MEDS: buPROPion SR 150 MG (WELLBUTRIN SR) TAB PO SCH (08:58)
[2016-10-16] MEDS: SERTRALINE 100 MG (ZOLOFT) TAB PO SCH (08:58)
[2016-10-16] MEDS: amLODIPine 5 MG (NORVASC) TAB PO SCH (08:58)
[2016-10-16] MEDS ORDERED: AMLO10TA2 PO (10:47)
--- NOTE | 2016-10-16 11:44 | Occ Therapy Progress Note ---
Therapy Progress Note Attempted OT treatment at 1120. Pt sitting in chair. Pt refused ADL training, exercises, or any other activity, stating he is tired and he is wanting to go home. Pt refused to participate. Pt sitting in chair with all needs met. 1, visit MACRINA DYKES OT Oct 16, 2016 11:44
--- NOTE | 2016-10-16 11:47 | Physical Therapy Daily Note ---
PT Daily Note-Current Subjective Patient agrees to PT. Patient is incontinent urine and required dependent assist to cleanse and change. Pain Numeric Pain Scale: 0-No Pain Location: No Pain Reported Mental Status Patient Orientation: Person, Time, Situation Transfers Functional [place] Measure 0=Not Assessed/NA 4=Minimal Assistance 1=Total Assistance 5=Supervision or Setup 2=Maximal Assistance 6=Modified [place] 3=Moderate Assistance 7=Complete IndependenceIRFPAI Quality Coding Scale 6 Independent with activity with or without an assistive device 5 Patient requires set up or clean up by helper. Patient completes activity by themselves 4 Supervision or touching assist (CGA). [place] provide cues , steadying assist 3 The helper provides less than half the effort to complete the activity 2 The helper provides more than half the effort to complete the activity 1 Dependent. The helper does all the effort to complete an activity 7 Patient refused to complete or attempt activity 9 The patient did not perform the activity before the current illness or injury 88 Not attempted due to Medical conditions or safety concerns Transfers (B, C, W/C) (FIM): 3 Scootin Rollin Supine to/from Sit: 5 Sit to/from Stand: 3 mod assist with sit to stand due to dizziness and overall poor balance Gait Training Gait (FIM): 3 Distance (FIM): 3=150 ft Distance: 225' Gait Level of Assist: 3 Gait Persons Needed: 1 Gait Assistive Device: FWW unsteady with multiple episodes of LOB with PT correcting with gait belt Assessment Patient is up in recliner with chair alarm activated. Patient continues to require assistance with mobility for safety. PT to increase activity as tolerated by patient. PT Short Term Goals Short Term Goals Time Frame: Oct 20, 2016 Transfers (B,C,W/C) (FIM): 5 Gait (FIM): 1 Distance (FIM): 1=up to 49 ft Gait Distance Comment: 20' Gait Level of Assist: 5 Gait Assistive Device: FWW PT Intermediate Goals Intermediate Goals PT Intermediate Goals Time Frame: Oct 27, 2016 Transfers (B,C,W/C) (FIM): 5 Gait (FIM): 5 Gait distance (FIM): 3=150 ft Distance: 150' Gait Level of Assist: 5 Gait Assistive Device: FWW PT Plan Treatment/Plan Treatment Plan: Continue Plan of Care Treatment Plan: Bed Mobility, Education, Functional Activity Jesus, Functional Strength, Gait, Therapeutic Exercise, Transfers Treatment Duration: Oct 27, 2016 Frequency: Daily Estimated Hrs Per Day: .25 hour per day Patient and/or Family Agrees t: Yes Time/GCodes Time In: 1100 Time Out: 1110 Total Billed Treatment Time: 10 Total Billed Treatment 1 visit GT 10 min THERON GUARDADO PT Oct 16, 2016 11:47
[2016-10-16] MEDS: ENOXAPARIN 40 MG/0.4 ML (LOVENOX) SYR SC SCH (12:12)
--- NOTE | 2016-10-16 14:08 | Progress Note-Hospitalist ---
Subjective HPI/CC On Admission Date Seen by Provider: Oct 16, 2016 Time Seen by Provider: 11:00 CC: UTI with weakness HPI: This patient was seen yesterday on 10/13/16 and inadvertently missed the history and physical dictation. Patient presented to the emergency room with fever and weakness and has a history of chronic UTI. Patient was found to have abnormal UA so is placed on Rocephin empirically and due to the fact that he was almost immobile he was admitted to fourth floor for IV fluid IV antibiotics and further evaluation. His nhmhovan-wc-hwu is a jass-ds-hphb mother who takes care of him since brain surgery and after moving him out of a [facility] in [place] and has actually done pretty well at home. He has a wheelchair and walker and all supportive devices that he needs at home and he will be returning home at discharge. Patient takes insulin and otherwise does well and sees the [facility] and has no local private practice physician. Today I saw the patient and see lactobacillus on urine culture I did confer with urology and we will await for sensitivities to return on the urine culture before discontinue the Rocephin antibiotics but lactobacillus is usually in female vaginal area so unsure of why that is in his urine culture. Nebulizer treatments are now ordered and home medication are all given without difficulty and his plan is to return home on Saturday with lnrtkhwy-fi-wok. He declines any mcc placement or home health. Subjective/Events-last exam He reports feeling well today. He has no complaints. Would like to be discharged. CM discussed with daughter in law who is primary form grader operator and she does not feel she can adequately care for him as she is 6 month . Requesting SNF/LTC placement. Objective Exam Vital Signs Vital Sign - Last 12Hours 10/12/16 10/13/16 10/13/16 23:39 02:30 12:00 Temp 98.5 Pulse 89 Resp 18 B/P (MAP) 178/94 Pulse Ox 95 O2 Delivery Room Air O2 Flow Rate 2.00 Capillary Refill : Less Than 3 Seconds General Appearance: No Apparent Distress, WD/WN Respiratory: Chest Non Tender, Lungs Clear, Normal Breath Sounds Cardiovascular: Regular Rate, Rhythm, No JVD, No Murmur Gastrointestinal: Normal Bowel Sounds, Non Tender, Soft Extremity: Non Tender, No Calf Tenderness, No Pedal Edema Neurologic/Psychiatric: Alert, Oriented x3 Assessment/Plan Assessment and Plan Assess & Plan/Chief Complaint Assessment: Acute on chronic UTI - day #3 of Rocephin, will switch to oral abx in preparation for discharge - No sensitivities available on culture, has done well on cephalosporin so will switch to Keflex History of brain tumor surgery a year and half ago living with [facility] for the past 9 months Incomplete paralysis of lower legs due to brain tumor surgery Chronic debility - PT/OT - Primary form grader operator is daughter in law and does not feel she can care for him currently - CM contacted SNU and has placement for tomorrow Insulin Dependent Diabetes mellitus -Levemir 10 units QHS -SSI -Fingerstick BS AC and QHS HTN - Continue Amlodipine but increased to 10mg FEN/GI PPX: - Reg diet - Lovenox - Saline Lock BRENDA RAMOS MD Oct 16, 2016 14:08
[2016-10-16 15:47] VITALS: BP 146/64
[2016-10-16] MEDS: inSUlin DETERMIR 1 UNIT/0.01 ML (LEVEMIR) CHARGE PER UNIT SQ SCH (21:00)
[2016-10-16] MEDS: CEPHALEXIN 250 MG (KEFLEX) CAP PO SCH (21:00)
[2016-10-17] VITALS: BP 196/94
[2016-10-17 01:40] VITALS: BP 167/89
[2016-10-17] MEDS: inSUlin ASPART (NovoLOG) 1 UNIT/0.01 ML (CHARGE PER UNIT) SC SCH ×2 (05:27→11:00)
[2016-10-17 08:00] VITALS: BP 189/111
[2016-10-17] MEDS: buPROPion SR 150 MG (WELLBUTRIN SR) TAB PO SCH (08:24)
[2016-10-17] MEDS: ATORVASTATIN 20 MG (LIPITOR) TABLET PO SCH (08:24)
[2016-10-17] MEDS: SERTRALINE 100 MG (ZOLOFT) TAB PO SCH (08:24)
[2016-10-17] MEDS: CEPHALEXIN 250 MG (KEFLEX) CAP PO SCH (08:26)
[2016-10-17] MEDS ORDERED: amLODIPine 10 MG (NORVASC) TAB PO SCH (09:00)
--- NOTE | 2016-10-17 10:16 | Discharge Inst-Skilled Nursing ---
Discharge Inst-Skilled NF Patient Instructions Patient Problems: UTI Chronic Debility and hemiplegia TBI Cognitive Impairment Consult/Follow Up/Orders Skilled NF Admit to: Certification (SNF) I certify that SNF services are required to be given on an inpatient basis because of the above named patient's need for [facility] care on a continuing basis for the conditions(s) for which he/she was receiving inpatient hospital services prior to his/her transfer to the SNF. Half-Way Facility Order: Nursing Services, Distribution Agent-Evaluate & Treat, Physical Therapy-Evaluate & Treat, Speech Language-Evaluate & Treat Discharge Diet: Low Sodium Diet Daily Activity as Tolerated: Yes New & Resume Previous Orders Brenda Corey Oct 17, 2016 10:15 Pneu Vac Indicated: Yes BRENDA COREY MD Oct 17, 2016 10:16
--- NOTE | 2016-10-17 10:22 | Discharge Summary-Hospitalist ---
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 Neuropathy Diabetes mellitus Chronic debility Discharge Diagnosis Assessment: Acute on chronic UTI - day #4/7 of abx - No sensitivities available on culture History of brain tumor surgery a year and half ago living with [id number] for the past 9 months Incomplete paralysis of lower legs due to brain tumor surgery Chronic debility - PT/OT - 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 is daughter in law and does not feel she can care for him currently - CM contacted SNU and has placement available Insulin Dependent Diabetes mellitus -Levemir 10 units QHS -SSI -Fingerstick BS AC and QHS HTN - Continue Amlodipine but increased to 10mg FEN/GI PPX: - Reg diet - Lovenox - Saline Lock Discharge Summary Discharge Physical Examination Allergies: Coded Allergies: erythromycin base (Verified Allergy, Unknown, 10/13/16) oxaprozin (Verified Allergy, Unknown, 10/13/16) Vitals & I&Os Vital Signs Date Time Temp Pulse Resp B/P (MAP) Pulse Ox O2 Delivery O2 Flow Rate FiO2 10/17/16 08:00 99.1 88 18 189/111 91 Room Air 10/14/16 23:40 2.00 Hospital Course Pt is a 66yo CM who presented to the ER with confusion and was found to have a UTI. He was treated with IV antibiotics as cultures we awaited. His cultures grew lactobacillus but no sensitivities were available. He responded well to Rocephin so was switched to Keflex to complete 7 days of antibiotics. Labs (last 24 hrs) Laboratory Tests 10/16/16 11:10: Glucometer 176H 10/16/16 15:49: Glucometer 161H 10/16/16 20:36: Glucometer 165H 10/17/16 05:22: Glucometer 142H Microbiology 10/13/16 Urine Culture - Final, Complete Lactobacillus Species Pending Labs Laboratory Tests 10/17/16 05:22: Glucometer 142 Discussion & Recommendations Please continue to take your antibiotics as written above and to establish care with a PCP for further management of your HTN. Discharge Home Medications: Active Scripts Active Amlodipine Besylate 10 Mg Tablet 10 Mg PO DAILY Reported Vitamin D-3 (Cholecalciferol (Vitamin D3)) 2,000 Unit Tablet 2,000 Unit PO DAILY Amlodipine Besylate 10 Mg Tablet 5 Mg PO DAILY Iprat-Albut 0.5-3(2.5) mg/3 ml (Ipratropium/Albuterol Sulfate) 3 Ml Ampul.neb 3 Ml IH Q4H PRN Novolog (Insulin Aspart) 100 Unit/1 Ml Susp 15-17 Unit SQ TID Lantus (Insulin Glargine,Hum.rec.anlog) 100 Unit/1 Ml Vial 15-20 Unit SQ HS Wellbutrin Sr (Bupropion HCl) 100 Mg Tablet.er 300 Mg PO DAILY Atorvastatin Calcium 20 Mg Tablet 20 Mg PO DAILY Advair 250-50 Diskus (Fluticasone/Salmeterol) 1 Each Blst.w.dev Metformin HCl 500 Mg Tablet 500 Mg PO BID Sertraline HCl 100 Mg Tablet 100 Mg PO DAILY Gabapentin 300 Mg Capsule 600 Mg PO TID Condition at discharge Stable, improved Instructions to patient/family Please see electronic discharge instructions given to patient. Clinical Quality Measures DVT/VTE Risk/Contraindication: Risk Factor Score Per Nursin RFS Level Per Nursing on Admit: 4+=Very High BRENDA RAMOS MD Oct 17, 2016 10:22
[2016-10-17] MEDS ORDERED: CEPH250C PO (10:28)
--- NOTE | 2016-10-17 10:54 | Physical Therapy Daily Note ---
PT Daily Note-Current Subjective Pt laying Supine in bed upon arrival. Pt agrees to PT. Pain Location: No Pain Reported Mental Status Patient Orientation: Person, Situation Pt is incontinent/wears brief and dependent for toileting. Transfers Functional [place] Measure 0=Not Assessed/NA 4=Minimal Assistance 1=Total Assistance 5=Supervision or Setup 2=Maximal Assistance 6=Modified [place] 3=Moderate Assistance 7=Complete IndependenceIRFPAI Quality Coding Scale 6 Independent with activity with or without an assistive device 5 Patient requires set up or clean up by helper. Patient completes activity by themselves 4 Supervision or touching assist (CGA). [place] provide cues , steadying assist 3 The helper provides less than half the effort to complete the activity 2 The helper provides more than half the effort to complete the activity 1 Dependent. The helper does all the effort to complete an activity 7 Patient refused to complete or attempt activity 9 The patient did not perform the activity before the current illness or injury 88 Not attempted due to Medical conditions or safety concerns Scootin Rollin Supine to/from Sit: 4 Sit to/from Stand: 3 Bed to/from Chair: 3 Weight Bearing Weight Bearing Restriction: Full Weight Bearing Location Restriction: LE Bilateral Gait Training Distance (FIM): 1=up to 49 ft Distance: 10' Gait Level of Assist: 4 Gait Persons Needed: 1 Gait Assistive Device: FWW Pt leans back during transfer and ambulation so pt transfers to recliner instead of longer ambulation. Exercises Seated Therapy Exercises: Ankle pumps, Long arc quads, Hip flexion, Kicking activity Seated Reps: 15 Treatments Pt transfers from Supine to EOB at Min A then EOB to standing at Mod A. Since pt is leaning so heavily backwards even after VC, nurse assists with standing pt to put brief on for ambulation. Pt then ambulates shortly before transferring to recliner due to leaning back heavily. Pt completes Seated Ex in recliner before resting at end of tx with all needs met. Assessment Current Status: Fair Progress Pt fatigues easy and is confused as well as pushes backward even with VC to stand up tall. PT Short Term Goals Short Term Goals Time Frame: Oct 20, 2016 Transfers (B,C,W/C) (FIM): 5 Gait (FIM): 1 Distance (FIM): 1=up to 49 ft Gait Distance Comment: 20' Gait Level of Assist: 5 Gait Assistive Device: FWW PT Senior Teller Goals Retirement Goals PT Retirement Goals Time Frame: Oct 27, 2016 Transfers (B,C,W/C) (FIM): 5 Gait (FIM): 5 Gait distance (FIM): 3=150 ft Distance: 150' Gait Level of Assist: 5 Gait Assistive Device: FWW PT Plan Problem List Problem List: Activity Tolerance, Functional Strength, Safety, Balance, Gait, Transfer Treatment/Plan Treatment Plan: Continue Plan of Care Treatment Plan: Bed Mobility, Education, Functional Activity Jesus, Functional Strength, Gait, Therapeutic Exercise, Transfers Treatment Duration: Oct 27, 2016 Frequency: Daily Estimated Hrs Per Day: .25 hour per day Patient and/or Family Agrees t: Yes Safety Risks/Education Patient Education: Gait Training, Transfer Techniques, Correct Positioning, Safety Issues Teaching Recipient: Patient Teaching Methods: Discussion Response to Teaching: Reinforcement Needed Time/GCodes Time In: 915 Time Out: 945 Total Billed Treatment Time: 30 Total Billed Treatment visit, FA x2 (30m) EVI BOYD PTA Oct 17, 2016 10:54
== END 2016-10-17 12:44 | DRG 690 ==
LOC: EDUNIT# 23:08 → ER 23:12 → 4TH 10-13 01:45
PROVIDERS: ADMIT Internal Medicine; ATTEND Internal Medicine
DX: N39.0 Urinary tract infection, site not specified (principal); B96.89 Other specified bacterial agents as the cause of diseases classified elsewhere; G82.22 Paraplegia, incomplete; Y83.8 Other surgical procedures as the cause of abnormal reaction of the patient, or of later complication, without mention of misadventure at the time of the procedure; E11.40 Type 2 diabetes mellitus with diabetic neuropathy, unspecified; J44.9 Chronic obstructive pulmonary disease, unspecified; I10 Essential (primary) hypertension; F03.90 Unspecified dementia, unspecified severity, without behavioral disturbance, psychotic disturbance, mood disturbance, and anxiety; F32.9 Major depressive disorder, single episode, unspecified; Z87.442 Personal history of urinary calculi; Z87.440 Personal history of urinary (tract) infections; Z79.4 Long term (current) use of insulin; Z74.2 Need for assistance at home and no other household member able to render care
CPT/HCPCS: 36415; 71010; 80048; 80053; 81000; 82962; 83605; 83735; 85025; 87088; 94760; 96360

== ENCOUNTER → 2017-08-09 | Outpatient (CLI) | payer MEDICARE, OTHER ==
[~2017-08-09] MED LIST: AMLO10TA2 PO; ATOR20TA66 PO; BUPR100T7 PO; CEPH250C PO; CHOL200059 PO; FLUT1DIS26; GABA-488 PO; GLIP5TAB13 PO; INSU100V16 SQ; INSU100V6 SQ; IPRA3AMP31 IH; METF500T5 PO; SERT100T8 PO
== END ==
LOC: WOUNDCARE 08:50
PROVIDERS: ATTEND Surgery
DX: L89.312 Pressure ulcer of right buttock, stage 2 (principal); L89.322 Pressure ulcer of left buttock, stage 2; G82.22 Paraplegia, incomplete; D43.1 Neoplasm of uncertain behavior of brain, infratentorial
CPT/HCPCS: 99213

== ENCOUNTER → 2017-08-19 | Outpatient (CLI) | payer OTHER | LOC: WOUNDCARE 14:51 | PROVIDERS: ATTEND Surgery | DX: L89.312 Pressure ulcer of right buttock, stage 2 (principal); L89.322 Pressure ulcer of left buttock, stage 2; G82.22 Paraplegia, incomplete; D43.1 Neoplasm of uncertain behavior of brain, infratentorial | CPT/HCPCS: 99212 ==

== ENCOUNTER → 2017-08-26 | Outpatient (CLI) | payer OTHER | LOC: WOUNDCARE 09:25 | PROVIDERS: ATTEND Surgery | DX: L89.312 Pressure ulcer of right buttock, stage 2 (principal); L89.322 Pressure ulcer of left buttock, stage 2; G82.22 Paraplegia, incomplete; D43.1 Neoplasm of uncertain behavior of brain, infratentorial | CPT/HCPCS: 99212 ==

== ENCOUNTER → 2018-12-30 | Outpatient (CLI) | payer OTHER ==
[~2018-12-30] MED LIST changes: -AMLO10TA2 PO; +AMLO10TA7 PO; +METF-397 PO; -METF500T5 PO
== END ==
LOC: WOUNDCARE 13:39
PROVIDERS: ATTEND Surgery
DX: L22 Diaper dermatitis (principal); B35.4 Tinea corporis; N39.498 Other specified urinary incontinence; F03.90 Unspecified dementia, unspecified severity, without behavioral disturbance, psychotic disturbance, mood disturbance, and anxiety
CPT/HCPCS: 99213